=== PATIENT | male | born 2000 | race Two or more races ===

== ENCOUNTER 2021-10-26 13:04 | Outpatient (REF) | payer OTHER, SELFPAY | END 2021-10-26 13:05 | disposition home or self-care (01) | LOC: HO.LAB 13:04 | PROVIDERS: Visit Provider Internal Medicine | DX: Z20.822 Contact with and (suspected) exposure to COVID-19 (principal) | CPT/HCPCS: C9803; U0003; U0005 ==

== ENCOUNTER 2022-05-24 15:51 | Emergency (ER) | payer OTHER, SELFPAY ==
[2022-05-24 16:59] VITALS: BP 125/75; PULSE 61; RESP 18; TEMP 36.8; O2SAT 100; BMI 21.4
--- NOTE | 2022-05-24 18:02 | ED_ITS ---
HPI - Skin/Abscess/Foreign Bdy General Chief complaint: Skin/Abscess/Foreign Body Stated complaint: Rash on feet Time Seen by Provider: 05/24/22 17:38 Source: patient Mode of arrival: ambulatory History of Present Illness HPI narrative: 21-year-old male with no significant past medical history presenting to the ED complaining of painless rash to bilateral feet x1 week. Denies spreading of rash, fever, chills, arthralgias, recent travel, abdominal pain, nausea/vomiting, pruritus, new medication or exposures, known tick or insect bites MD complaint: rash Onset (ago): week(s) Related Data Allergies Allergy/AdvReac Type Severity Reaction Status Date / Time No Known Allergies Allergy Verified 05/24/22 16:58 Review of Systems Review of Systems: Constitutional: No Weight loss, No Fever, No Chills ENT/Mouth: No Ear Pain, No Nasal Congestion, No Hoarseness, No sore throat, No Rhinorrhea, No Swallowing Difficulty Cardiovascular: No Chest Pain, No SOB Respiratory: No Cough, No Sputum, No Wheezing Gastrointestinal: No Nausea, No Vomiting, No Diarrhea, No Constipation, No Abdominal pain Genitourinary: No Dysuria, No Urinary Frequency, No Hematuria, No Flank Pain Musculoskeletal: No joint pain, No Myalgias, No Joint Swelling Skin: + Skin Lesions, No rash Neuro: No Weakness, No Numbness, No Paresthesias Yes all other systems are reviewed and are negative Constitutional: Constitutional: Reports as per [facility] Past Medical History Attestation statement: The following information was validated with the patient. Social History Social History Advance Directives: No Advance Directives Information Provided: No Physical Exam Vital Signs: Vital Signs: Last Vital Signs Temp 98.3 F 05/24/22 16:59 Pulse 61 05/24/22 16:59 Resp 18 05/24/22 16:59 BP 125/75 05/24/22 16:59 Pulse Ox 100 05/24/22 16:59 O2 Del Method 05/24/22 16:59 BMI result Body Mass Index 21.4 Const: General: cooperative, healthy appearing and no acute distress Orientation/consciousness: patient oriented x3 Limitations: no limitations HEENT: Other: No mucous membrane involvement Head: Yes normal to inspection and Yes atraumatic Ears: hearing grossly normal bilaterally General nose exam: Normal external nose present Face and sinus: Yes normal facial exam Mouth: Normal oral and palatal mucosa present, oropharynx normal and no drooling Throat: Yes posterior oropharynx normal, Yes tonsils normal, Yes uvula midline and No uvular edema Eyes: General: appearance normal, both eyes and all related structures EOM: EOMs intact bilaterally Neck: Neck: Yes normal visual inspection, Yes no lymphadenopathy and Yes no meningeal signs Resp: Effort & Inspection: normal respiratory effort and no respiratory distress Auscultation: clear to auscultation bilaterally Cardio: Rate: regular rate Heart sounds: S1 normal heart sound present and S2 normal heart sound present Skin: Other: + petechial rash noted to top of both feet. No palm or sole involvement. No mucous membrane involvement. Rash is blanchable Wounds: no wounds Neuro: General: patient oriented x3, tone normal and no meningeal signs Gait exam (Neuro): Normal gait present Extrem: General: Yes normal to inspection Course Course Course Narrative: -no leukocytosis. Platelets WNL. Coags unremarkable -labs otherwise unremarkable MDM - Skin/Abscess/Foreign Bdy MDM Narrative Medical decision making narrative: 21-year-old male with no significant past medical history presenting to the ED complaining of painless rash to bilateral feet x1 week. On exam vital signs s table, NAD, nontoxic appearing, physical exam as above please refer to images. Concern for autoimmune disease vs coagulopathy or vasculitis. Case discussed with Dr. Persaud Plan: Labs, PCP follow-up Medical Records Attestation: I reviewed the patient's medical records. Lab Data Attestation: I reviewed the patient's lab results. Result diagrams: 05/24/22 18:02 05/24/22 18:02 Labs: Lab Results 05/24/22 05/24/22 05/24/22 Range/Units 18:02 18:02 18:02 WBC 8.6 (4.8-10.8) X10*3/uL RBC 5.15 (4.60-5.80) X10*6/uL Hgb 16.1 (14.0-18.0) g/dl Hct 46.2 (42.0-52.0) % MCV 89.7 (80.0-98.0) fL MCH 31.3 (27.0-33.0) pg MCHC 34.8 (31.0-36.0) g/dl RDW 13.1 (11.0-16.0) % Plt Count 218 (160-400) X10*3/uL MPV 9.7 (9.4-12.4) fL Immature Gran % (Auto) 0.2 (0.0-0.4) % Neut % (Auto) 72.8 (45-73) % Lymph % (Auto) 20.3 (20-40) % [place] % (Auto) 5.9 (2-11) % Eos % (Auto) 0.5 (0-4) % Baso % (Auto) 0.3 (0-2) % Lymph # (Auto) 1.8 (1.2-4.9) X10*3/uL [place] # (Auto) 0.5 (0.1-1.2) X10*3/uL Eos # (Auto) 0.0 (0.0-0.4) X10*3/uL Baso # (Auto) 0.0 (0.0-0.2) X10*3/uL Abs Immat Gran (auto) 0.02 (0.00-0.03) X10*3/uL Absolute Neuts (auto) 6.3 (2.0-8.3) x10*3/uL Absolute Nucleated RBC 0.000 (0.0-0.012) X10*3/uL Nucleated RBC % (auto) 0.0 (0.0-0.2) /100WBC PT 13.4 H (10.0-13.1) SEC INR 1.2 H (0.9-1.1) APTT 29.6 (24.1-38.0) SEC Sodium 140 (135-145) mmol/L Potassium 4.3 (3.3-5.1) mmol/L Chloride 106 (96-108) mmol/L Carbon Dioxide 25 (22-29) mmol/L Anion Gap 13 (12-20) BUN 19 H (9-16) mg/dL Creatinine 0.98 (0.5-1.4) mg/dL Estim Creat Clear Calc 94.8 Estimated GFR > 60 Random Glucose 96 (60-115) mg/dL Calcium 9.4 (8.4-10.2) mg/dL Total Bilirubin 0.8 (0.0-1.0) mg/dL Direct Bilirubin 0.3 (0.0-0.5) mg/dL AST 14 (5-37) U/L ALT 16 (0-40) U/L Alkaline Phosphatase 84 (39-117) U/L Total Protein 7.3 (6.5-8.0) g/dL Albumin 4.9 (3.5-5.0) g/dL Discharge Plan Discharge Clinical Impression: Petechial rash Patient Disposition: Home, Self-Care Instructions: Acute Rash (ED) Additional Instructions: Your blood work was reassuring. You need to have close follow-up with your doctor, you need further test to be done outpatient CALL YOUR DOCTOR FOR CLOSE FOLLOW-UP. IF RASH PERSISTS/WORSENS, SPREADS, YOU FEVER, BODY ACHES RETURN TO THE EMERGENCY DEPARTMENT Referrals: Khadijah Thornton MD [Physician] - Fannie Joseph MD [Physician] - Brandon Hurst MD [Physician] - Physician,Wen Mora [Primary Care Provider] -
[2022-05-24 18:09] LABS: MANUAL DIFF FLAG NO
[2022-05-24 18:12] LABS: Basophils Percent Auto 0.3 % (0-2); Eosinophils Percent Auto 0.5 % (0-4); Hematocrit 46.2 % (42.0-52.0); Hemoglobin 16.1 g/dl (14.0-18.0); Imm Gran Abs Auto 0.02 X10*3/uL (0.00-0.03); Imm Gran Pct Auto 0.2 % (0.0-0.4); Lymphocytes Absolute Auto 1.8 X10*3/uL (1.2-4.9); Lymphocytes Percent Auto 20.3 % (20-40); Mean Corpuscular HGB Conc 34.8 g/dl (31.0-36.0); Mean Corpuscular Hemoglobin 31.3 pg (27.0-33.0); Mean Corpuscular Volume 89.7 fL (80.0-98.0); Mean Platelet Volume 9.7 fL (9.4-12.4); Monocytes Absolute Auto 0.5 X10*3/uL (0.1-1.2); Monocytes Percent Auto 5.9 % (2-11); Neutrophils Absolute Auto 6.3 x10*3/uL (2.0-8.3); Neutrophils Percent Auto 72.8 % (45-73); Platelet Count 218 X10*3/uL (160-400); Red Blood Count 5.15 X10*6/uL (4.60-5.80); Red Cell Distribution Width 13.1 % (11.0-16.0); White Blood Count 8.6 X10*3/uL (4.8-10.8)
[2022-05-24 18:21] LABS: INTERNATIONAL NORM RATIO 1.2 (0.9-1.1); Prothrombin Time 13.4 SEC (10.0-13.1)
[2022-05-24 18:24] LABS: Partial Thromboplastin Time 29.6 SEC (24.1-38.0)
[2022-05-24 18:30] LABS: Alanine Aminotransferase 16 U/L (0-40); Albumin Level 4.9 g/dL (3.5-5.0); Alkaline Phosphatase 84 U/L (39-117); Anion Gap 13 (12-20); Aspartate Amino Transferase 14 U/L (5-37); Bilirubin Direct 0.3 mg/dL (0.0-0.5); Bilirubin Total 0.8 mg/dL (0.0-1.0); Blood Urea Nitrogen 19 mg/dL (9-16); Calcium 9.4 mg/dL (8.4-10.2); Carbon Dioxide 25 mmol/L (22-29); Chloride 106 mmol/L (96-108); Creatinine Clr Calc Pharmacy 94.8; Estimated Glomerular Filt Rate > 60; Glucose Random 96 mg/dL (60-115); Potassium 4.3 mmol/L (3.3-5.1); Sodium 140 mmol/L (135-145); Total Protein 7.3 g/dL (6.5-8.0)
== END 2022-05-24 18:56 | disposition home or self-care (01) ==
PROVIDERS: Physician Assistant; Emergency Provider Internal Medicine
DX: R23.3 Spontaneous ecchymoses (principal); R21 Rash and other nonspecific skin eruption
CPT/HCPCS: 36415; 80048; 80076; 85025; 85610; 85730; 99282; 99283

== ENCOUNTER 2023-11-23 18:46 | Emergency (ER) | payer OTHER, SELFPAY ==
--- NOTE | ~2023-11-23 | XR_ITS ---
EXAMINATION: XR ANKLE, LEFT CLINICAL INFORMATION: Ankle injury COMPARISON: None available. TECHNIQUE: AP, lateral, and mortise views of the left ankle. FINDINGS: Ankle joint effusion is present. A posterior malleolar fracture is noted. The medial and lateral malleoli appear normal. The ankle mortise appears stable a bone island is present in the talus. Alignment is anatomic. No erosions. Joint spaces are maintained. XR/XR ankle LT min 3V IMPRESSION: Posterior malleolar fracture with ankle joint effusion.
[2023-11-23 18:47] VITALS: BP 154/86; PULSE 96; RESP 18; TEMP 36.9; O2SAT 99; BMI 22.0
--- NOTE | 2023-11-23 18:59 | ED_ITS ---
HPI - Extremity Injury (Lower) General Chief Complaint: Extremity Injury, Lower Stated Complaint: left ankle inj Time Seen by Provider: 11/23/23 18:59 Source: patient Mode of arrival: ambulatory Limitations: no limitations History of Present Illness HPI Narrative: Patient is a 23-year-old male presenting to the emergency department with complaint of left medial ankle pain. States he was roller-skating for the 1st time today, was having difficulty standing and rolled his ankle. This happened earlier in the day. Patient did not take any Tylenol or ibuprofen prior to arrival. He reports mild bruising to medial ankle. Denies any numbness or tingling. Has been able to bear weight. complaint: ankle injury Onset (ago): hour(s) Injury: Left: ankle Place: other Severity: mild Relieving factors: rest Exacerbating factors: movement and palpation Context: other Associated symptoms: swelling and able to partially bear weight Other symptoms: none Treatments prior to arrival: cold therapy Related Data Allergies Allergy/AdvReac Type Severity Reaction Status Date / Time No Known Allergies Allergy Verified 05/24/22 16:58 Review of Systems Review of Systems: As per HPI. Yes all other systems are reviewed and are negative Constitutional: Constitutional: Reports as per HPI [facility] Social History Social History Smoked in Last 30 Days: No Use of substances other than those prescribed or required for medical reasons: No Advance Directives: No Advance Directives Information Provided: No Physical Exam Vital Signs: Vital Signs: Last Vital Signs Temp 98.3 F 11/23/23 20:00 Pulse 87 11/23/23 20:00 Resp 12 11/23/23 20:00 BP 135/78 11/23/23 20:00 Pulse Ox 97 11/23/23 20:00 O2 Del Method Room Air 11/23/23 20:00 BMI result Body Mass Index 22.0 Vital signs have been reviewed and appear to be correct. Blood pressure elevated. Heart rate normal. Respiratory rate normal. Temperature normal. Oxygen saturation normal. Const: General: cooperative, healthy appearing and no acute distress Orientation/consciousness: oriented to person, oriented to place, oriented to time and patient oriented x3 Limitations: no limitations HEENT: Head: Yes normocephalic and Yes atraumatic Ears: external ears normal General nose exam: Normal external nose present Face and sinus: Yes face symmetric Mouth: oropharynx normal and moist mucous membranes Throat: Yes uvula midline Eyes: Pupils: Equal, round and reactive pupils present Neck: Neck: Yes normal visual inspection and Yes supple Resp: Effort & Inspection: normal respiratory effort and able to speak in complete sentences Auscultation: clear to auscultation bilaterally Cardio: Rate: regular rate Rhythm: regular rhythm Heart sounds: S1 normal heart sound present and S2 normal heart sound present GI: Palpation (GI): Soft to palpation and nontender Auscultation: normoactive bowel sounds : General: Yes no CVA tenderness Back/Spine/Pelvis: Back: no CVA tenderness Skin: General skin exam: elasticity normal and turgor normal Neuro: General: oriented to person, oriented to place, oriented to time, patient oriented x3, moves all extremities, no focal motor deficits and CN's II- XI intact bilaterally Cranial nerves: Yes Equal, round and reactive pupils present Cognition (Neuro): normal cognition Extrem: General: Yes full ROM, Yes no pedal edema and Yes no calf tenderness Left lower extremity: full ROM, normal capillary refill and ankle Details: tenderness Location: of the medial malleolus, swelling Details: medially (mild), normal ROM and ecchymosis medial Details: single; no crepitus and achilles tendon exam normal Psych: Mental Status: mental status grossly normal Affect: normal affect Thought process: Normal thought process present Medications Administered Discontinued Medications Generic Name Dose Route Start Last Admin Trade Name Freq PRN Reason Stop Dose Admin Ibuprofen 600 mg 11/23/23 19:15 11/23/23 20:00 Ibuprofen 600 Mg Tablet PO 11/23/23 19:16 600 mg ONCE ONE Administration Medical Decision Making Medical Decision Making [facility] Narrative: Patient is a 23-year-old male presenting to the emergency department with co mplaint of left medial ankle pain. On exam patient is awake, A+Ox3, BP elevated likely secondary to discomfort, VS otherwise WNL, afebrile, normal neurological exam without focal deficits, physical exam findings as above. Given reported symptoms and physical exam findings, initial differential includes left ankle contusion, strain, sprain, fracture. X-ray notable for posterior malleolus fracture with effusion to left ankle. My interpretation is in agreement with the radiologist's interpretation. Results discussed with patient. Splint applied as per procedure note with positive CMS before and after application of splint. Crutches and crutch teaching provided. Advised patient to keep ankle elevated while at rest and apply ice intermittently. Alternate Tylenol and ibuprofen. Will refer to orthopedics for further evaluation and management. Return precautions discussed at bedside. Patient verbalized understanding of and agreement with plan. Differential Diagnosis Differential Diagnoses: The differential diagnosis associated with the presentation includes As per MDM. Independent Interpretation I performed an independent interpretation of an: Plain X-Ray Interpretation: Posterior malleolus fracture and effusion left ankle Radiology Impression Discussion of test interpretation with radiology: I have reviewed the radiologist's reading. Radiologist Impression: XR/XR ankle LT min 3V IMPRESSION: Posterior malleolar fracture with ankle joint effusion. External Record Review External record reviewed: Inpatient record, Office record and Outpatient record Procedures Orthopedic Splinting/Casting Injury #1: Side: left Lower Extremity Injury Location: ankle Lower Extremity Immobilizer: posterior splint Other Orthopedic Equipment: crutches Discharge Plan Discharge Clinical Impression: Closed fracture of posterior malleolus Qualifiers: Encounter type: initial encounter Laterality: left Qualified Code(s): S82.392A - Other fracture of lower end of left tibia, initial encounter for closed fracture Patient Disposition: Home, Self-Care Instructions: Ankle Fracture (DC), Crutch Instructions (ED), R.I.C.E. Treatment (ED) Additional Instructions: You have been evaluated in the emergency department today for ankle pain. Your x-ray showed a fracture to your ankle. You were placed in a splint in the emergency department. You should not bear any weight on this ankle until you follow up with orthopedics. Please call their office to schedule an appointment. We have provided crutches for you to use while your ankle heals. Please rest, ice, and elevate your ankle, and resume normal activities as tolerated. We recommend you take 600mg ibuprofen every 6 hours or 650mg Tylenol every 6 hours as needed for pain. If needed you can alternate these medications as they take 1 medication every 3 hours. For instance at noon take ibuprofen, then at 3:00 p.m. take Tylenol, then at 6:00 p.m. take ibuprofen. Please schedule an appointment for follow-up with your primary care provider this week. Return to the emergency department if you experience worsening pain, numbness, tingling, change of color in your toes, or any other concerning symptoms. Referrals: [facility] [Provider Group] Stand Alone Forms: Work/School Release
[2023-11-23 20:00] VITALS: BP 135/78; PULSE 87; RESP 12; TEMP 36.8; O2SAT 97
[2023-11-23] MEDS: Ibuprofen 600 MG TABLET PO (20:00)
--- NOTE | 2023-11-23 21:16 | PC.NURSE ---
Pt aox4 resting comfortably. Crutch training provided. Return demonstration provided.
== END 2023-11-23 21:17 | disposition home or self-care (01) ==
PROVIDERS: Emergency Provider Emergency Medicine Emergency Medical Services
DX: S82.892A Other fracture of left lower leg, initial encounter for closed fracture (principal); X50.1XXA Overexertion from prolonged static or awkward postures, initial encounter; Y93.51 Activity, roller skating (inline) and skateboarding; Y92.331 Roller skating rink as the place of occurrence of the external cause; Y99.9 Unspecified external cause status
CPT/HCPCS: 29515; 73610; 99283; 99284

== ENCOUNTER 2023-11-25 13:32 | Outpatient (AMB) | payer OTHER, SELFPAY ==
--- NOTE | 2023-11-25 13:42 | A.OFFVIS_ITS ---
Intake Vital Signs 11/25/23 13:43 Height 5 ft 4 in Weight 128 lb BMI 22.0 Intake Visit Reasons: FC- LT ankle fx, DOI 11/23/22 Intake Note: Kervin is a 23 year old male who presents today for a evaluation of his left ankle sprain, DOI 11/23/23. Patient reports he was roller skating for the first time and he feel injuring his left ankle. Allergies No Known Allergies Allergy (Verified 11/25/23 13:42) HPI FC- LT ankle fx, DOI 11/23/22 HPI Details 23-year-old male who presents in the off ice today, as a new patient, for an evaluation of left ankle pain. The patient presented to the ED on 11/23/2023 states post roller skating for the 1st time. X-rays of the left ankle were obtained. The patient was placed in a posterior splint, given crutches and referred to Orthopedics. Patient works at the [employer]. Review of Systems Const All systems reviewed & are unremarkable except as noted in HPI and below Physical Exam Vital Signs: BMI result Body Mass Index 22.0 Const General: cooperative and no acute distress Orientation/consciousness: patient oriented x3 Resp Effort & Inspection: normal respiratory effort and able to speak in complete sentences Cardio Peripheral pulses: Peripheral pulses 2+ throughout Skin General skin exam: no rashes or lesions noted Neuro General: patient oriented x3 Extrem Other: Left ankle: Mild edema along the medial and lateral malleolus. Able to slightly dorsiflex and plantarflex but is limited due to pain. Able to move all digits. Sensation intact Pedal pulse intact. Office Procedures Casting/Splints 40668-[id number] Leg Cast Application Procedure code (CPT) selection complete Fracture Care Fracture Billing Code: Fracture Billing Code Assessment & Plan Assessment & Plan (1) Left malleolar fracture: Onset Date: ~11/23/23 Comment: Posterior malleolar fracture Code(s): S82.892A - Other fracture of left lower leg, initial encounter for closed fracture Qualifiers: Encounter type: initial encounter Fracture type: closed Qualified Code(s): S82.892A - Other fracture of left lower leg, initial encounter for closed fracture Plan Mr. Allison is a 23-year-old male who presents in the office today, as a new patient, for an evaluation of left ankle pain. The patient presented to the ED on 11/23/2023 states post roller skating for the 1st time. X-rays of the left ankle were obtained. The patient was placed in a posterior splint, given crutches and referred to Orthopedics. Patient works at the [employer]. Due to the patient having minimal edema to the area we have decided to place him in a custom made cast while in the office today. I feel this would be the most protective for him. He does have crutches, however, feels unstable with them and is using a walker for ambulation. He will remain out of work until his follow up, which will be readdressed at that time. Follow up will be in 4 weeks, or sooner if needed. X-rays of the left ankle, obtained on 11/23/2023, revealed: A small posterior malleolar fracture with ankle joint effusion. Patient Instructions: Scribed for Taisha Gerard PA-C by Raysa Watson medical record assistant, on 11/25/2023 at 1:35 pm, EST. Coding Level of Care Code New Pt Level 4 (75560) Diagnoses Closed fracture of malleolus of left ankle, initial encounter S82.892A Encounter type: initial encounter Fracture type: closed CPT Codes Casting - CPT: 84289-Scznk Leg Cast Application ([id number]) Fracture Care - Fracture Billing Code: Fracture Billing Code ([id number])
[2023-11-25 13:43] VITALS: BMI 22.0
== END 2023-11-25 14:35 | disposition home or self-care (01) ==
PROVIDERS: Visit Provider Physician Assistant
DX: S82.55XA Nondisplaced fracture of medial malleolus of left tibia, initial encounter for closed fracture (principal); S82.892A Other fracture of left lower leg, initial encounter for closed fracture
CPT/HCPCS: 27767; 99204

== ENCOUNTER → 2023-11-25 13:32 | Outpatient (BNVA) | payer BC, SELFPAY | PROVIDERS: Visit Provider Physician Assistant ==

== ENCOUNTER 2023-12-19 09:55 | Outpatient (REF) | payer OTHER, SELFPAY ==
--- NOTE | ~2023-12-19 | XR_ITS ---
EXAMINATION: XR ANKLE, LEFT CLINICAL INFORMATION: Pain. COMPARISON: Radiographs dated 11/23/2023. TECHNIQUE: AP, lateral, and mortise views of the left ankle. FINDINGS: No fracture. Alignment is anatomic. No erosions. Joint spaces are maintained. Soft tissues are normal. XR/XR ankle LT min 3V IMPRESSION: Normal left ankle.
== END 2023-12-19 09:56 | disposition home or self-care (01) ==
LOC: HO.HOSX 09:55
PROVIDERS: Visit Provider Physician Assistant
DX: S82.892D Other fracture of left lower leg, subsequent encounter for closed fracture with routine healing (principal)
CPT/HCPCS: 73610

== ENCOUNTER 2023-12-19 12:51 | Outpatient (AMB) | payer OTHER, SELFPAY ==
[2023-12-19 13:06] VITALS: BMI 22.0
--- NOTE | 2023-12-19 13:06 | MHC.OFFVIS ---
Intake Vital Signs 12/19/23 13:06 Height 5 ft 4 in Weight 128 lb BMI 22.0 Intake Visit Reasons: OV - Left malleolar fx, DOI 11/23/23 Intake Note: Kervin is a 23 year old male who presents today for a follow up of his Left malleolar fx, DOI 11/23/23. Patient reports he is doing well. He states that he is not having any pain or discomfort. Allergies No Known Allergies Allergy (Verified 12/19/23 13:06) HPI OV - Left malleolar fx, DOI 11/23/23 HPI Details 23-year-old male who presents in the office today for a follow up of a left malleolar fracture, which occurred on 11/23/2023 states post roller skating for the 1st time which lead to a fall. I last saw the patient in the office on 11/25/2023 where he was placed into a cast and encouraged to ambulate with the use of a walker due to feeling unstable on crutches. He was given a work note to remain out of work until follow up. While in the office today the patient reports he is doing well. He denies any pain or discomfort. Review of Systems Const All systems reviewed & are unremarkable except as noted in HPI and below Physical Exam Vital Signs: BMI result Body Mass Index 22.0 Const General: cooperative, healthy appearing and no acute distress Resp Effort & Inspection: normal respiratory effort and able to speak in complete sentences Cardio Rate: regular rate Peripheral pulses: Peripheral pulses 2+ throughout GI Palpation (GI): Soft to palpation Skin Lesions: no lesions Rashes: no rashes Extrem Other: Left ankle: Normal to inspection. No ecchymosis, erythema, or edema. Slightly able to dorsiflex and plantarflex but is limited due to pain and stiffness. Sensation intact. Pedal pulse intact. Office Procedures Casting/Splints [id number] Leg Cast Application Procedure code (CPT) selection complete Assessment & Plan Assessment & Plan (1) Left malleolar fracture: Onset Date: ~11/23/23 Comment: Posterior malleolar fracture Code(s): S82.892A - Other fracture of left lower leg, initial encounter for closed fracture Qualifiers: Encounter type: initial encounter Fracture type: closed Qualified Code(s): S82.892A - Other fracture of left lower leg, initial encounter for closed fracture Plan Mr. Crispin Graham is a 23-year-old male who presents in the office today for a follow up of a left malleolar fracture, which occurred on 11/23/2023 states post roller skating for the 1st time which lead to a fall. I last saw the patient in the office on 11/25/2023 where he was placed into a cast and encouraged to ambulate with the use of a walker due to feeling unstable on crutches. He was given a work note to remain out of work until follow up. While in the office today the patient reports he is doing well. He denies any pain or discomfort. The patient was placed back into a short leg cast, custom made. He will remain non-weight bearing. Follow up will be in 3 weeks, or sooner if needed. X-rays of the left ankle which were obtained while in the office today and were reviewed by me, Taisha Gerard PA-C, revealed routine healing of a posterior malleolar fracture. Orders: Orders XR ankle LT min 3V Today M25.579 - Pain in unspecified ankle and joints of unspecified foot Patient Instructions: Scribed by Raysa Watson medical instrument technician, for Taisha Gerard PA-C on 12/19/2023 at 12:55 pm, EST. Coding Level of Care Code Global (86404) Diagnoses Closed fracture of malleolus of left ankle, initial encounter S82.892A Encounter type: initial encounter Fracture type: closed CPT Codes Casting - CPT: 41437-Nvkof Leg Cast Application ([id number])
== END 2023-12-19 14:03 | disposition home or self-care (01) ==
PROVIDERS: Visit Provider Physician Assistant
DX: S82.892A Other fracture of left lower leg, initial encounter for closed fracture (principal); S82.55XA Nondisplaced fracture of medial malleolus of left tibia, initial encounter for closed fracture
CPT/HCPCS: 29405; 99024

== ENCOUNTER 2024-01-09 08:43 | Outpatient (AMB) | payer OTHER, SELFPAY ==
--- NOTE | 2024-01-09 09:21 | A.OFFVIS_ITS ---
Intake Intake Visit Reasons: OV - Left malleolar fx, DOI 11/23/23 Intake Note: Kervin is a 23 year old male who presents today for a follow up of his left malleolar fx, DOI 11/23/23. Patient reports he is doing well, no pain or discomfort. Allergies No Known Allergies Allergy (Verified 12/19/23 13:06) HPI OV - Left malleolar fx, DOI 11/23/23 HPI Details 23-year-old male who presents in the off ice today for a follow up of a left malleolar fracture, which occurred on 11/23/2023 states post roller skating for the 1st time which lead to a fall. I last saw the patient on 12/19/2023 when he was placed back into a short leg cast and was instructed to remain non-weight bearing. While in the office today the patient reports he is doing well with no pain or discomfort. Review of Systems Const All systems reviewed & are unremarkable except as noted in HPI and below Physical Exam Const General: cooperative, healthy appearing and no acute distress Resp Effort & Inspection: normal respiratory effort and able to speak in complete sentences Cardio Rate: regular rate Peripheral pulses: Peripheral pulses 2+ throughout GI Palpation (GI): Soft to palpation Skin Lesions: no lesions Rashes: no rashes Extrem Other: Left ankle: Normal to inspection. No ecchymosis, erythema, or edema. No tenderness to palpation of the posterior, medial, or lateral mal. Stiffness with dorsiflexion and plantarflexion, pronation and supination. Sensation intact. Pedal pulse intact. Assessment & Plan Assessment & Plan (1) Left malleolar fracture: Onset Date: ~11/23/23 Comment: Posterior malleolar fracture Code(s): S82.892A - Other fracture of left lower leg, initial encounter for closed fracture Qualifiers: Encounter type: initial encounter Fracture type: closed Qualified Code(s): S82.892A - Other fracture of left lower leg, initial encounter for closed fracture Plan Mr. Crispin Graham is a 23-year-old male who presents in the office today for a follow up of a left malleolar fracture, which occurred on 11/23/2023 states post roller skating for the 1st time which lead to a fall. I last saw the patient on 12/19/2023 when he was placed back into a short leg cast and was instructed to remain non-weight bearing. While in the office today the patient reports he is doing well with no pain or discomfort. The patient was placed back into the tall walking boot. He may weight bear as tolerated. An order for physical therapy to work on ROM and gait training was placed in the office today. He has a goal of weaning out of the boot over the next two weeks. He was given a return to work note for light duty with the restrictions of no lifting, pushing, pulling, and he must be in the boot at all times until weaned out by physical therapy. Follow up will be in 4 weeks with repeat x-rays, or sooner if needed. X-rays of the left ankle which were obtained while in the office today and were reviewed by me, Taisha Gerard PA-C, revealed routine healing of a left malleolar fracture. Orders: Orders XR ankle LT min 3V Today M25.579 - Pain in unspecified ankle and joints of unspecified foot PT Evaluation and Treatment Today S82.892A - Other fracture of left lower leg, initial encounter for closed fracture Patient Instructions: Scribed by Raysa Watson phlebotomist medical lab assistant, for Taisha Gerard PA-C on 01/09/2024 at 8:47 am, EST. Coding Level of Care Code Global (65507) Diagnoses Closed fracture of malleolus of left ankle, initial encounter S82.892A Encounter type: initial encounter Fracture type: closed
== END 2024-01-09 09:47 | disposition home or self-care (01) ==
PROVIDERS: Visit Provider Physician Assistant
DX: S82.892A Other fracture of left lower leg, initial encounter for closed fracture (principal)
CPT/HCPCS: 99024

== ENCOUNTER 2024-01-09 09:24 | Outpatient (REF) | payer OTHER, SELFPAY ==
--- NOTE | ~2024-01-09 | XR_ITS ---
EXAMINATION: XR ANKLE, LEFT CLINICAL INFORMATION: Cast off. COMPARISON: None available. TECHNIQUE: AP, lateral, and mortise views of the left ankle. FINDINGS: Bony callus formation identified in the region of the previously seen posterior malleolar fracture. Bony segments appear in gross anatomic alignment. No acute fracture appreciated. Alignment is anatomic. No erosions. Joint spaces appear maintained. Soft tissues appear unremarkable. XR/XR ankle LT min 3V IMPRESSION: Bony callus formation identified in the region of the previously seen posterior malleolar fracture. Bony segments appear in gross anatomic alignment.
== END 2024-01-09 09:25 | disposition home or self-care (01) ==
LOC: HO.HOSX 09:24
PROVIDERS: Visit Provider Physician Assistant
DX: M25.572 Pain in left ankle and joints of left foot (principal)
CPT/HCPCS: 73610

== ENCOUNTER 2024-02-06 09:05 | Outpatient (REF) | payer OTHER, SELFPAY ==
--- NOTE | ~2024-02-06 | XR_ITS ---
EXAMINATION: XR ANKLE, LEFT CLINICAL INFORMATION: Ankle pain COMPARISON: Ankle radiographs 01/09/2024 TECHNIQUE: AP, lateral, and mortise views of the left ankle. FINDINGS: Progression of bridging bony callus formation along the healing posterior malleolar fracture. Age-indeterminate osseous fragment noted adjacent to the tip of the medial malleolus not seen on priors may reflect sequelae of age indeterminate medial malleolus avulsion fracture. Joint spaces are maintained. Ankle mortise is congruent. Soft tissue swelling about the foot and ankle increased from prior. XR/XR ankle LT min 3V IMPRESSION: 1. Progression of bridging bony callus formation along the healing posterior malleolar fracture. 2. Age-indeterminate osseous fragment noted adjacent to the tip of the medial malleolus not seen on priors may reflect sequelae of age indeterminate medial malleolus avulsion fracture recommend correlation with interval history of trauma and point tenderness. 3. Soft tissue swelling about the foot and ankle increased from prior.
== END 2024-02-06 09:06 | disposition home or self-care (01) ==
LOC: HO.HOSX 09:05
PROVIDERS: Visit Provider Physician Assistant
DX: S82.392D Other fracture of lower end of left tibia, subsequent encounter for closed fracture with routine healing (principal)
CPT/HCPCS: 73610

== ENCOUNTER 2024-02-06 10:10 | Outpatient (AMB) | payer OTHER, SELFPAY ==
--- NOTE | 2024-02-06 10:27 | MHC.OFFVIS ---
Intake Intake Visit Reasons: OV - Left malleolar fx, DOI 11/23/23 Intake Note: Kervin is a 23 year old male who presents today for a follow up of his left malleolar fx, DOI 11/23/23. Patient reports he is doing well, no pain or discomfort. Patient noticed improvements when going to PT, however he tends to feel a bit sore after. Allergies No Known Allergies Allergy (Verified 02/06/24 10:27) HPI OV - Left malleolar fx, DOI 11/23/23 HPI Details 23-year-old male who presents in the office today for a follow up of a left malleolar fracture, which occurred on 11/23/2023 states post roller skating which lead to a fall. I last saw the patient in the office on 01/09/2024. At that time he was placed back into a tall walking boot where he could weight bear as tolerated. He was encouraged to attend PT to work on ROM and gait training. He had a goal to wean out of the boot over 2 weeks. He was given a return to work note for light duty with the restrictions of no lifting, pushing, pulling, and he must be in the boot at all times until weaned out by physical therapy. While in the office today he denies having pain or discomfort. He reports having some pain after PT. He has not concerns in the office today. 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 No ecchymosis, erythema, or edema. No tenderness to palpation of the posterior, medial, or lateral mal. Stiffness with dorsiflexion and plantarflexion, pronation and supination. Sensation intact. Pedal pulse intact. Assessment & Plan Assessment & Plan (1) Fracture of posterior malleolus of left tibia: Onset Date: ~11/23/23 Code(s): S82.392A - Other fracture of lower end of left tibia, initial encounter for closed fracture Qualifiers: Encounter type: subsequent encounter Fracture healing: with routine healing Fracture type: closed Qualified Code(s): S82.392D - Other fracture of lower end of left tibia, subsequent encounter for closed fracture with routine healing Plan Mr. Crispin Graham is a 23-year-old male who presents in the office today for a follow up of a left malleolar fracture, which occurred on 11/23/2023 states post roller skating which lead to a fall. I last saw the patient in the office on 01/09/2024. At that time he was placed back into a tall walking boot where he could weight bear as tolerated. He was encouraged to attend PT to work on ROM and gait training. He had a goal to wean out of the boot over 2 weeks. He was given a return to work note for light duty with the restrictions of no lifting, pushing, pulling, and he must be in the boot at all times until weaned out by physical therapy. While in the office today he denies having pain or discomfort. He reports having some pain after PT. He has not concerns in the office today. A work note was filled out with the assistance of the patient while in the office today. This will be scanned into the chart. He will continue to work with PT. He has already weaned out of the boot. 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 X-rays of the left ankle which were obtained while in the office today and were reviewed by me, Taisha Gerard PA-C, revealed routine healing of a left posterior malleolar fracture. Orders: Orders XR ankle LT min 3V Today M25.579 - Pain in unspecified ankle and joints of unspecified foot Patient Instructions: Scribed by Raysa Watson medical anthropology director, for Taisha Gerard PA-C on 02/06/2024 at 10:12 am, EST. Coding Level of Care Code Global (58247) Diagnoses Closed fracture of posterior malleolus of left tibia with routine healing, subsequent encounter S82.392D Encounter type: subsequent encounter Fracture healing: with routine healing Fracture type: closed
== END 2024-02-06 10:53 | disposition home or self-care (01) ==
PROVIDERS: Visit Provider Physician Assistant
DX: S82.392D Other fracture of lower end of left tibia, subsequent encounter for closed fracture with routine healing (principal)
CPT/HCPCS: 99024

== ENCOUNTER 2024-03-05 13:00 | Outpatient (RCR) | payer OTHER, SELFPAY ==
--- NOTE | 2024-01-24 16:37 | MHC.PT.EP ---
[facility] [place] [address] [phone] F: [phone] F: [phone] F: [phone] F: [phone] Physical Therapy Plan of Care Date of Evaluation: 01/21/24 Date of Surgery: Diagnosis: Closed L ankle fracture. Assessment: Pt is a 23 y/o male [employer] employee referred to PT for closed L ankle Fx which occurred 11/23/23 resulting in decreased tolerance for ambulating, negotiating stairs and curbs, lifting objects of weight from the floor, running, standing for duration as well as performing squatting and lifting objects of weight from the floor secondary to decreased L ankle ROM and strength, gait abnormality, mild swelling, and pain. Pt is deemed an appropriate candidate to receive skilled PT services to address their physical impairments in order to improve their functional ability. Frequency and Duration: The patient will be seen 2x / wk x 5 wks. Short Term Goals: initiate home program. Improve ankle ROM to at least 12 deg DF; initial 4 deg. Long-Term Goals: I with home program. improve LEFI by at least 9 points. Pt will be able to ascend and descend 1 fl of stairs with reciprocal pattern. Treatment Plan: Modalities to reduce pain, spasms and effusion. Manual therapy to restore motion and function. Therapeutic exercise to improve strength and flexibility. Neuromuscular re-education for posture and balance. Therapeutic activities to return to functional activities of daily living. Electronically signed by: Juventino Bravo PT. Please sign and return to therapist. Thank you for your referral.
--- NOTE | 2024-06-15 08:40 | MHC.PT.DC ---
[facility] [place] [facility] [place] [facility] [place] [address] [phone] F: [phone] F: [phone] F: [phone] F: [phone] Physical Therapy Discharge Report Diagnosis: Closed L ankle fracture. Date of Surgery: Date of Evaluation: 01/21/24 Date of Discharge: 06/15/24 Treatments to Date: 11 Cancellations to Date: 0 No Shows to Date: 0 Discharge Status: Improved Function Independent with HEP Patient Elected to Stop Discharge Summary: Pt did not attend his last apt for final assessment. Electronically signed by: Juventino Bravo PT. Please sign and return to therapist. Thank you for your referral.
== END 2024-06-15 08:41 | disposition home or self-care (01) ==
LOC: HO.PT 13:00
PROVIDERS: PCP Family Medicine; Visit Provider Physician Assistant
DX: S82.892D Other fracture of left lower leg, subsequent encounter for closed fracture with routine healing (principal)
CPT/HCPCS: 97110; 97112; 97140; 97161

== ENCOUNTER 2024-03-10 08:35 | Outpatient (REF) | payer OTHER, SELFPAY ==
--- NOTE | ~2024-03-10 | XR_ITS ---
EXAMINATION: XR ANKLE, LEFT CLINICAL INFORMATION: Pain in unspecified ankle and joints of unspecified foot COMPARISON: None available. TECHNIQUE: AP, lateral, and mortise views of the left ankle. FINDINGS: Small ossific or calcific fragment inferior to the medial malleolus with mild associated soft tissue swelling could represent a small chip fracture. Alignment is anatomic. No erosions. Joint spaces are maintained. XR/XR ankle LT min 3V IMPRESSION: Small ossific or calcific fragment inferior to the medial malleolus with mild associated soft tissue swelling could represent a small chip fracture.
== END 2024-03-10 08:36 | disposition home or self-care (01) ==
LOC: HO.HOSX 08:35
PROVIDERS: Visit Provider Physician Assistant
DX: M25.572 Pain in left ankle and joints of left foot (principal)
CPT/HCPCS: 73610

== ENCOUNTER 2024-03-10 12:44 | Outpatient (AMB) | payer OTHER, SELFPAY ==
[2024-03-10 12:46] VITALS: BMI 22.0
--- NOTE | 2024-03-10 12:46 | MHC.OFFVIS ---
Vital Signs 03/10/24 12:46 Height 5 ft 4 in Weight 128 lb BMI 22.0 Intake Visit Reasons: OV - left malleolar fx, DOI 11/23/23 Intake Note: Kervin is a 23 year old male who presents today for a follow up of his left malleolar fx, DOI 11/23/23. Patient reports on and off swelling and soreness. Heating Worker Required: No Accompanied by: Self / Same As Patient Allergies No Known Allergies Allergy (Verified 03/10/24 12:46) HPI HPI OV - left malleolar fx, DOI 11/23/23: Details: 23-year-old male who presents in the office today for a follow up of a left malleolar fracture, which occurred on 11/23/2023 states post roller skating which led to a fall. I last saw the patient on 02/06/2024 when he was encouraged to continue PT and to begin to wean out of the boot. While in the office today the patient reports intermittent edema and soreness. 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 No ecchymosis, erythema, or edema. No tenderness to palpation of the posterior, medial, or lateral mal. Stiffness with dorsiflexion and plantarflexion, pronation and supination. Sensation intact. Pedal pulse intact. Assessment & Plan Assessment & Plan (1) Fracture of posterior malleolus of left tibia: Onset Date: ~11/23/23 Code(s): S82.392A - Other fracture of lower end of left tibia, initial encounter for closed fracture Category: Medical Qualifiers: Encounter type: subsequent encounter Fracture healing: with routine healing Fracture type: closed Qualified Code(s): S82.392D - Other fracture of lower end of left tibia, subsequent encounter for closed fracture with routine healing Plan Mr. Crispin Graham is a 23-year-old male who presents in the office today for a follow up of a left malleolar fracture, which occurred on 11/23/2023 states post roller skating which led to a fall. I last saw the patient on 02/06/2024 when he was encouraged to continue PT and to begin to wean out of the boot. While in the office today the patient reports intermittent edema and soreness. Patient may return to normal activities as tolerated. 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 Follow up will be PRN, or sooner if needed. X-rays of the left ankle which were obtained while in the office today and were reviewed by me, Taisha Gerard PA-C, revealed a healed left malleolar fracture. Orders: Orders XR ankle LT min 3V 03/10/24 M25.579 - Pain in unspecified ankle and joints of unspecified foot Patient Instructions: Scribed by Raysa Watson medical technologist blood bank, for Taisha Gerard PA-C on 03/10/2024 at 12:53 pm, EST. Coding Level of Care Code Est Pt Level 3 (96847) Diagnoses Closed fracture of posterior malleolus of left tibia with routine healing, subsequent encounter S82.392D Encounter type: subsequent encounter Fracture healing: with routine healing Fracture type: closed
== END 2024-03-10 13:05 | disposition home or self-care (01) ==
PROVIDERS: PCP Family Medicine; Visit Provider Physician Assistant
DX: S82.392D Other fracture of lower end of left tibia, subsequent encounter for closed fracture with routine healing (principal)
CPT/HCPCS: 99213